=== PATIENT | female | born 1960 | race Hispanic/Latino ===

== ENCOUNTER 2017-05-21 16:54 | Outpatient (CLI) | payer OTHER ==
--- NOTE | 2017-05-21 17:32 | RAD ---
HISTORY: Primary osteoarthritis. AP VIEWS BOTH KNEES OBTAINED 05/21/17 There is joint space narrowing in medial compartment of both knees, greater on the left than on the right. Bilateral calcified intra-articular loose bodies are seen. IMPRESSION: Bilateral osteoarthritis, especially involving the medial compartments. POS: [facility]
--- NOTE | 2017-05-21 17:35 | RAD ---
TWO VIEWS LEFT KNEE 05/21/17 HISTORY: Left knee pain. Primary osteoarthritis. AP and lateral views left knee is obtained. There is moderate severe joint space narrowing in the me dial compartment of the left knee. Osteophytes also seen in the medial compartment. Numerous fragmen carli loose bodies seen within the left knee joint extending upwards lateral to the patellar region. IMPRESSION: Left knee osteoarthritis. POS: [facility]
--- NOTE | 2017-05-21 18:10 | RAD ---
TWO VIEWS RIGHT KNEE 05/21/17 HISTORY: Primary osteoarthritis. AP and lateral view of the right knee is obtained. There is some joint space narrowing in the medial compartment of the right knee. Osteophyte seen in the medial and lateral compartments of the right knee. Numerous loose bodies seen in the right knee joint. These are extensively calcified. IMPRESSION: Right knee osteoarthritis with presence of numerous loose bodies in the right knee joint. POS: [facility]
== END 2017-05-21 16:55 | disposition home or self-care (01) ==
LOC: NAV RAD 16:54
PROVIDERS: ATTEND Nurse Practitioner
DX: M17.0 Bilateral primary osteoarthritis of knee (principal)
CPT/HCPCS: 73565